=== PATIENT | female | born 1995 | race Caucasian/White ===

== ENCOUNTER 2019-06-06 19:50 | Inpatient (IN) | payer BC ==
[~2019-06-06] VITALS: Ht 165.1 cm; Wt 87.7 kg
--- NOTE | 2019-06-06 19:50 | NUR ---
LOU DENSON presented to unit via AMBULATION from HOME, accompanied by SO , FOR INDUCTION. LOU DENSON weighed, gowned, voided, and to bed. EFHM and TOCO applied, VS taken. LOU DENSON oriented to bed controls, call light, TV, heat, and A/C controls.
[2019-06-06 20:00] VITALS: BP 143/87
[2019-06-06] MEDS ORDERED: D5 LR IV SOLUTION 1,000 ML IV ONE (20:02)
[2019-06-06] MEDS: D5 LR IV SOLUTION 1,000 ML IV SCH (20:20)
[2019-06-06 21:00] VITALS: BP 128/78
[2019-06-06] MEDS ORDERED: PREN-53 PO (21:40)
[2019-06-06] MEDS ORDERED: MINERAL OIL CONCENTRATE 99.9% 15 ML UDC TOP PRN (22:00)
[2019-06-06 22:14] LABS: BASOPHILS % (AUTO) 0 % (0-10); EOSINOPHILS # (AUTO) 0.1 10^3/uL (0.0-0.3); EOSINOPHILS % (AUTO) 1 % (0-10); HEMATOCRIT 34 % (35-52); HEMOGLOBIN 11.4 G/DL (11.5-16.0); LYMPHOCYTES # (AUTO) 1.9 X 10^3 (1.0-4.0); LYMPHOCYTES % (AUTO) 17 % (12-44); MEAN CORPUSCULAR HEMOGLOBIN 31 PG (25-34); MEAN CORPUSCULAR HGB CONC 34 G/DL (32-36); MEAN CORPUSCULAR VOLUME 92 FL (80-99); MONOCYTES # (AUTO) 0.8 X 10^3 (0.0-1.0); MONOCYTES % (AUTO) 7 % (0-12); NEUTROPHILS % (AUTO) 74 % (42-75); PLATELET COUNT 198 10^3/uL (130-400); RED CELL DISTRIBUTION WIDTH 12.7 % (10.0-14.5); WHITE BLOOD COUNT 10.9 10^3/uL (4.3-11.0)
[2019-06-06 23:20] VITALS: BP 130/77
[2019-06-07] VITALS (58 sets, daily range): BP systolic 110–147; BP diastolic 60–93
[2019-06-07] MEDS ORDERED: OXYTOCIN/NORMAL SALINE 500 ML IV SCH ×2 (03:00→11:21)
[2019-06-07] MEDS ORDERED: SUFENTA 0.6MCG/ML BUPIVA 0.125 100 ML ONE (03:38)
[2019-06-07] MEDS: D5 LR IV SOLUTION 1,000 ML IV SCH (04:06)
[2019-06-07] MEDS ORDERED: fentaNYL INJECTION 100 MCG/2 ML AMP ONE (05:53)
--- NOTE | 2019-06-07 05:56 | NUR ---
Esha Petit CRNA here for epidural placement. Procedure explained, consent reviewed and signed by anesthesia. Questions answered to patient's satisfaction. Time out taken to verify correct patient/procedure. Patient up to side of bed, assisted into sitting position. Betadine prep done x3 and sterile drape applied. Local done, see anesthesia record. Test dose given, see anesthesia record for drug and dosage. Epidural catheter secured in place. Epidural placement complete. Assisted back into bed, monitors adjusted. Epidural dosed, see anesthesia record. Epidural of Sufenta/Bupvicaine @ 12cc/hr stated per pump. Patient tolerated procedure well.
[2019-06-07] MEDS ORDERED: BUPIVACAINE 0.25% 30 ML (SENSORCAINE) VIAL ONE (06:20)
[2019-06-07] MEDS ORDERED: LACTATED RINGERS 1,000 ML IV ONE ×2 (06:25)
[2019-06-07] MEDS ORDERED: ONDANSETRON 4 MG/2 ML (SDV) Z0FRAN IV PRN (06:30)
[2019-06-07] MEDS ORDERED: EPIDURAL (SUFENTA 0.6MCG/ML BUPIVA 0.125%) 100 ML BAG EPI PRN (06:30)
[2019-06-07] MEDS ORDERED: NALOXONE 0.4 MG/ML 1 ML (NARCAN) VIAL IV PRN (06:30)
--- NOTE | 2019-06-07 08:45 | History & Physical-OB ---
OB - Chief Complaint & HPI Date/Time Date of Admission: Date of Admission: Jun 06, 2019 at 19:50 Date seen by a Provider: Jun 07, 2019 Time Seen by a Provider: 08:10 Chief Complaint/History OB-Reason for Admission/Chief: Induction of Labor Hx : 1 Hx Para: 0 Expected Date of Delivery: Jun 04, 2019 Gestational Age in Weeks: 40 Gestational Age in Days: 2 Admission Nurse Assessment Rev: Yes Allergies and Home Medications Allergies Coded Allergies: No Known Drug Allergies (Unverified , 06/06/19) Home Medications [id number]/Iron Fumarate/FA/Dss 1 Each Tablet, 1 EACH PO DAILY, (Reported) Patient Home Medication List Home Medication List Reviewed: Yes OB - History Hx of Present Ultrasounds: Normal mid trimester US Obstetrical Complications: None Medical Complications: None Information Induced Hypertension: No Maternal Gestational Diabetes: No Hemorrhage: No Obstetrical History Hx : 1 Hx Para: 0 Hx # Term Pregnancies: 0 Hx # Pregnancies: 0 Number of Living Children: 0 Hx Termination: No Hx Total # of Abortions (Spona: 0 Hx Multiple Gestation: No Hx Ectopic : No Hx Stillbirth: No Hx Complication: No Hx Induced Hypertens: No Hx Maternal Gestational Diabet: No Hx Hemorrhage: No Patient Past Medical History Noncontributory Social History/Family History Alcohol Use: Denies Use Recreational Drug Use: No OB - Admission Exam Physical Exam Vitals: Vital Signs 06/07/19 06/07/19 07:30 08:05 Temp 98.2 Pulse 55 Resp 18 B/P (MAP) 131/78 (95) O2 Delivery Room Air HEENT: NCAT Heart: Rhythm Normal Lungs: Clear Abdomen: Gravid Extremities: Normal Reflexes: Normal Cervical Dilatation: 5cm Effacement: 50% Station: -3 Membranes: Intact Heart Rate: 130's Accelerations: Accelerations Present Decelerations: No Decelerations Short Term Variability: Present Nursing Home Variability: Average (6-25) Contractions on Admission: < 5 Minutes Apart Intensity: Moderate Spring Scoring Tool (Modified) Dilation (cm): >5cm (3) Effacement (%): 51-79% (2) Descent/Station: -3 (0) Cervix Consistency: Soft (2) Subtract 1 point for: Nulliparity (-1) Labs Laboratory Tests Test 06/06/19 21:50 Range/Units White Blood Count 10.9 4.3-11.0 10^3/uL Red Blood Count 3.69 L 4.35-5.85 10^6/uL Hemoglobin 11.4 L 11.5-16.0 G/DL Hematocrit 34 L 35-52 % Mean Corpuscular Volume 92 80-99 FL Mean Corpuscular Hemoglobin 31 25-34 PG Mean Corpuscular Hemoglobin Concent 34 32-36 G/DL Red Cell Distribution Width 12.7 10.0-14.5 % Platelet Count 198 130-400 10^3/uL Mean Platelet Volume 12.0 H 7.4-10.4 FL Neutrophils (%) (Auto) 74 42-75 % Lymphocytes (%) (Auto) 17 12-44 % Monocytes (%) (Auto) 7 0-12 % Eosinophils (%) (Auto) 1 0-10 % Basophils (%) (Auto) 0 0-10 % Neutrophils # (Auto) 8.0 H 1.8-7.8 X 10^3 Lymphocytes # (Auto) 1.9 1.0-4.0 X 10^3 Monocytes # (Auto) 0.8 0.0-1.0 X 10^3 Eosinophils # (Auto) 0.1 0.0-0.3 10^3/uL Basophils # (Auto) 0.0 0.0-0.1 10^3/uL OB - Assessment/Plan/Diagnosis Assessment Assessment: induction of labor Admission Dx Intrauterine at 40 2/7 weeks Admission Status: Inpatient Order (span 2 midnights) Reason for Inpatient Admission: Intrauterine at 40 2/7 Plan Plan: Induction Induction Method: per Pitocin Protocol LUISANA SMALL DO Jun 07, 2019 08:44
[2019-06-07] MEDS ORDERED: LIDOCAINE 1% INJ 20 ML 20 ML VIAL ONE (09:55)
--- NOTE | 2019-06-07 11:21 | OB Labor & Delivery Record ---
Vag Delivery Note Vag Delivery Note Date of Delivery: 06/07/19 Preoperative Diagnosis: Roxana Duarte is a (24 /Para 1 / 0,Gestational Age (wks)40 Postoperative Diagnosis: Same Surgeon: LUISANA SMALL Canceling Machine Operator: [None] Anesthesia: [Epidural] Delivery Type: [Normal Spontaneous Vaginal Delivery] Findings: [] Viable [Female] infant, apgars [], weight [7 pounds, 4 ounces] Lacerations:Midline Episiotomy with standard repair Intact placenta with 3 vessel cord. No nuchal cord, body cord or shoulder dystocia Cytotec 800 mcg placed for hemorrhage prophylaxis Estimated Blood Loss: [300] ml Complications: None Condition: Stable Description of Procedure: The patient is a 24 year old female who presented [for Pitocin Induction of Labor]. She was admitted and informed consent was obtained. She progressed to complete dilatation and began to push. She was then set up for delivery. The infant's head was delivered atraumatically in the [ROP] position. The shoulders and remainder of the 's body were then delivered without difficulty. Upon delivery, the head was held below the level of the perineum and the mouth and nares were bulb suctioned. The cord was doubly clamped and cut and the infant was handed off to the pediatric staff. An intact placenta with 3-vessel cord delivered via Yun and there was found to be minimal bleeding.~ Vigorous fundal massage was performed and the fundus was found to be firm. IV oxytocin was given. Examination of the vagina and perineum revealed only the midline episiotomy which was repaired in the usual fashion with 2-0 and 3-0 vicryl suture. Following the repair, sponge, instrument and needle counts were correct. Mom and baby were both in stable condition in the labor suite. Vitals - Labs Vital Signs - I&O Vital Signs Date Time Temp Pulse Resp B/P (MAP) Pulse Ox O2 Delivery O2 Flow Rate FiO2 06/07/19 08:05 55 18 131/78 (95) Room Air 06/07/19 07:45 63 18 115/70 (85) Room Air 06/07/19 07:30 98.2 54 18 132/76 (94) Room Air 06/07/19 07:25 68 18 129/68 (88) Room Air 06/07/19 07:20 53 18 131/79 (96) Room Air 06/07/19 07:15 52 18 128/69 (88) Room Air 06/07/19 07:10 56 18 121/79 (93) Room Air 06/07/19 07:05 58 18 127/77 (94) Room Air 06/07/19 07:00 54 18 129/75 (93) Room Air 06/07/19 06:50 52 18 130/73 (92) Room Air 06/07/19 06:46 51 18 132/75 (94) Room Air 06/07/19 06:43 73 18 125/81 (96) Room Air 06/07/19 06:40 57 18 129/76 (93) Room Air 06/07/19 06:37 58 18 125/80 (95) Room Air 06/07/19 06:34 53 18 126/75 (92) Room Air 06/07/19 06:31 58 18 123/75 (91) Room Air 06/07/19 06:28 77 18 131/82 (98) Room Air 06/07/19 06:25 75 18 123/78 (93) Room Air 06/07/19 06:20 97.9 60 18 132/72 (92) Room Air 06/07/19 06:15 56 18 117/65 (82) Room Air 06/07/19 06:10 93 18 120/74 (89) Room Air 06/07/19 06:05 63 18 145/78 (100) Room Air 06/07/19 06:00 77 18 130/80 (97) Room Air 06/07/19 05:44 53 18 136/67 (90) Room Air 06/07/19 05:30 71 18 126/88 (101) Room Air 06/07/19 05:15 67 18 137/75 (95) Room Air 06/07/19 04:55 49 18 127/74 (91) Room Air 06/07/19 04:45 51 18 127/78 (94) Room Air 06/07/19 04:30 82 18 122/72 (89) Room Air 06/07/19 04:15 48 18 147/74 (98) Room Air 06/07/19 04:00 55 18 142/77 (98) Room Air 06/07/19 03:45 53 18 127/87 (100) Room Air 06/07/19 03:30 52 18 124/77 (93) Room Air 06/07/19 03:15 98.0 54 18 129/85 (100) Room Air 06/06/19 23:20 97.7 75 18 130/77 (94) Room Air 06/06/19 21:00 77 18 128/78 (95) Room Air 06/06/19 20:00 98.2 75 18 143/87 (105) Room Air l I & O 06/07/19 07:00 Intake Total 600 ml Balance 600 ml Labs Laboratory Tests 06/06/19 21:50: White Blood Count 10.9, Red Blood Count 3.69L, Hemoglobin 11.4L, Hematocrit 34L, Mean Corpuscular Volume 92, Mean Corpuscular Hemoglobin 31, Mean Corpuscular He moglobin Concent 34, Red Cell Distribution Width 12.7, Platelet Count 198, Mean Platelet Volume 12.0H, Neutrophils (%) (Auto) 74, Lymphocytes (%) (Auto) 17, Monocytes (%) (Auto) 7, Eosinophils (%) (Auto) 1, Basophils (%) (Auto) 0, Neutrophils # (Auto) 8.0H, Lymphocytes # (Auto) 1.9, Monocytes # (Auto) 0.8, Eosinophils # (Auto) 0.1, Basophils # (Auto) 0.0 LUISANA SMALL DO Jun 07, 2019 11:21
[2019-06-07] MEDS ORDERED: TETANUS,DIPTH,PERTUSS P/F (BOOSTRIX) 0.5 ML VIAL IM ONE (11:30)
[2019-06-07] MEDS ORDERED: DIBUCAINE (NUPERCAINAL) 1% OINT 30 GM TOP PRN (11:30)
[2019-06-07] MEDS ORDERED: MEASLES,MUMPS,RUBELLA 1 EA INJ SQ ONE (11:30)
[2019-06-07] MEDS ORDERED: WITCH HAZEL(TUCKS) 40 EA JAR TOP PRN (11:30)
[2019-06-07] MEDS ORDERED: BENZOCAINE/MENTHOL (DERMOPLAST) 56 ML CAN TP PRN (11:30)
[2019-06-07] MEDS ORDERED: CATHETER FLUSH 10 ML SYR IV SCH (14:00)
[2019-06-07] MEDS: IBUPROFEN 800 MG (MOTRIN) TAB PO SCH (14:22)
[2019-06-07] MEDS: ACETAMINOPHEN 500 MG TAB (TYLENOL) PO SCH ×2 (15:32→20:43)
--- NOTE | 2019-06-07 16:30 | NUR ---
FFU, light rubra lochia noted, no clots expressed. Pt assisted to sitting position and then standing position at side of bed. Pt reports L leg still numb, pt assisted to wheelchair. Pt taken to bathroom. +void. Pericare demonstrated. Tucks and dermoplast provided. Fresh vpad and underwear applied. Pt assisted back to wheelchair. Pt wheeled to room 312 accompanied by RN, Student Nurse, S.O., and family member with all personal belongings. Pt assisted to bed. Pt and family oriented to room and call light. packet explained. Encouraged pt to call when ready for ambulation again, as leg was still numb. Pt preparing to breastfeed at this time. NO needs or concerns voiced at this time
[2019-06-07] MEDS: DOCUSATE SODIUM 100 MG (COLACE) CAP PO SCH (20:42)
[2019-06-08 00:22] VITALS: BP 139/79
[2019-06-08] MEDS: IBUPROFEN 800 MG (MOTRIN) TAB PO SCH ×2 (00:22→08:59)
[2019-06-08] MEDS: ACETAMINOPHEN 500 MG TAB (TYLENOL) PO SCH ×3 (02:50→14:38)
[2019-06-08 04:55] VITALS: BP 125/74
[2019-06-08] MEDS ORDERED: PRENATAL VITAMIN 1 EA TAB PO SCH (07:00)
[2019-06-08 07:46] LABS: BASOPHILS % (AUTO) 0 % (0-10); EOSINOPHILS # (AUTO) 0.1 10^3/uL (0.0-0.3); EOSINOPHILS % (AUTO) 1 % (0-10); HEMATOCRIT 29 % (35-52); HEMOGLOBIN 9.5 G/DL (11.5-16.0); LYMPHOCYTES # (AUTO) 2.2 X 10^3 (1.0-4.0); LYMPHOCYTES % (AUTO) 20 % (12-44); MEAN CORPUSCULAR HEMOGLOBIN 31 PG (25-34); MEAN CORPUSCULAR HGB CONC 33 G/DL (32-36); MEAN CORPUSCULAR VOLUME 94 FL (80-99); MEAN PLATELET VOLUME 12.2 FL (7.4-10.4); MONOCYTES # (AUTO) 0.7 X 10^3 (0.0-1.0); MONOCYTES % (AUTO) 6 % (0-12); NEUTROPHILS # (AUTO) 8.3 X 10^3 (1.8-7.8); NEUTROPHILS % (AUTO) 73 % (42-75); PLATELET COUNT 201 10^3/uL (130-400); RED CELL DISTRIBUTION WIDTH 12.8 % (10.0-14.5); WHITE BLOOD COUNT 11.3 10^3/uL (4.3-11.0)
--- NOTE | 2019-06-08 07:50 | NUR ---
Dr Lyons to see pt. New orders received.
--- NOTE | 2019-06-08 08:08 | Discharge Summary ---
Diagnosis/Chief Complaint Date of Admission Jun 06, 2019 at 19:50 Date of Discharge June 08, 2019 Discharge Date: Jun 08, 2019 Discharge Time: 13:00 Admission Diagnosis Admission Diagnosis Intrauterine at 40 2/7 weeks Discharge Diagnosis Intrauterine at 40 2/7 weeks--delivered Reason Hospital Visit Pitocin Induction of Labor Discharge Summary Hospital Course Hospital Course Ms. Duarte was admitted for Pitocin Induction of Labor. She received an Epidural for antepartum pain management. I artificially rupture her membranes. She progressed to complete, then delivered a healthy viable female infant without complications. The remainder of her hospitalization was unremarkable. Her vital signs remained stable throughout her hospitalization. She will be discharged to home with instructions, prescriptions, and a follow up appointment. Labs Laboratory Tests 06/06/19 21:50: Red Blood Count 3.69L, Hemoglobin 11.4L, Hematocrit 34L, Mean Platelet Volume 12.0H, Neutrophils # (Auto) 8.0H 06/08/19 07:05: Red Blood Count 3.03L, Hemoglobin 9.5L, Hematocrit 29L, Mean Platelet Volume 12.2H, Neutrophils # (Auto) 8.3H, White Blood Count 11.3H Procedures None. Discharge Physical Examination Allergies: Coded Allergies: No Known Drug Allergies (Unverified , 06/06/19) Vitals & I&Os Vital Signs Date Time Temp Pulse Resp B/P (MAP) Pulse Ox O2 Delivery O2 Flow Rate FiO2 06/08/19 04:55 97.7 81 18 125/74 (91) 98 Room Air General Appearance: Alert, Oriented X3, Cooperative HEENT: Atraumatic Respiratory: Clear to Auscultation Cardiovascular: Regular Rate, No Murmurs Abdominal: Normal Bowel Sounds, Soft, No Tenderness Extremities: No Clubbing, No Cyanosis Skin: No Rashes Neuro: Normal Gait, Normal Speech Psych/Mental Status: Mental Status NL Discharge Home Medications Reviewed and agree with Discharge Medication list on patient's Discharge Instruction sheet Instructions to Patient/Family Please see electronic discharge instructions given to patient. Clinical Quality Measures DVT/VTE Risk/Contraindication: Risk Factor Score Per Nursin RFS Level Per Nursing on Admit: 1=Low/No VTE PPX LUISANA SMALL DO Jun 08, 2019 08:08
[2019-06-08] MEDS ORDERED: DOCU100C37 PO (08:10)
[2019-06-08] MEDS ORDERED: ACET-77 PO (08:10)
[2019-06-08] MEDS ORDERED: OXC5T PO (08:10)
[2019-06-08] MEDS ORDERED: IBUP-1780 PO (08:10)
[2019-06-08] MEDS: DOCUSATE SODIUM 100 MG (COLACE) CAP PO SCH (09:00)
[2019-06-08 09:10] VITALS: BP 124/76
[2019-06-08] MEDS ORDERED: TETANUS,DIPTH,PERTUSS P/F (BOOSTRIX) 0.5 ML VIAL IM ONE ×2 (12:27→12:51)
[2019-06-08 12:32] VITALS: BP 116/63
--- NOTE | 2019-06-08 14:00 | NUR ---
Discharge instructions explained, signed and copy to patient. pt verbalized understanding of instructions and denied questions. prescriptions given.
--- NOTE | 2019-06-08 14:33 | Anesthesia-Regional Post-Op ---
Regional Patient Condition Mental Status: Alert, Oriented x3 Circulation: Same as Pre-Op Headache: Absent Sensation: Full Recovery Motor Block: Absent Post Op Complications Complications None Follow Up Care/Instructions Patient Instructions None needed. Anesthesia/Patient Condition Patient is doing well, no complaints, stable vital signs, no apparent adverse anesthesia problems. CARROLL QUISPE DO Jun 08, 2019 14:33
--- NOTE | 2019-06-08 16:30 | NUR ---
Discharged to home. Ambulates self downstairs accompanied by staff member. To private vehicle with belongings in hand.
== END 2019-06-08 16:30 | disposition home or self-care (01) | DRG 807 ==
LOC: LDRP 19:50
PROVIDERS: ADMIT Obstetrics & Gynecology; ATTEND Obstetrics & Gynecology
PROC: 3E033VJ Introduction of Other Hormone into Peripheral Vein, Percutaneous Approach (ICD-10-PCS; 2019-06-06)
PROC: 10E0XZZ Delivery of Products of Conception, External Approach (ICD-10-PCS; principal; 2019-06-07)
PROC: 0W8NXZZ Division of Female Perineum, External Approach (ICD-10-PCS; 2019-06-07)
DX: O80 Encounter for full-term uncomplicated delivery (principal); Z3A.40 40 weeks gestation of pregnancy; Z37.0 Single live birth; Z23 Encounter for immunization
CPT/HCPCS: 36415; 85025; 86850; 86900; 86901; 90715

== ENCOUNTER → 2021-09-10 | Outpatient (CLI) | payer BC ==
[~2021-09-10] MED LIST: ACET-78 PO; DOCU100C37 PO; IBUP-1780 PO; OXC5T PO; PREN-53 PO
[2021-09-10 13:40] LABS: POTASSIUM 3.7 MMOL/L (3.6-5.0)
[2021-09-10 13:41] LABS: ALBUMIN 4.3 GM/DL (3.2-4.5); BILIRUBIN,TOTAL 0.4 MG/DL (0.1-1.0); CALCIUM 9.1 MG/DL (8.5-10.1); CREATININE SERUM 0.78 MG/DL (0.60-1.30); TOTAL PROTEIN 7.9 GM/DL (6.4-8.2)
[2021-09-10 13:42] LABS: HEMATOCRIT 42 % (35-52); HEMOGLOBIN 13.8 g/dL (11.5-16.0); LYMPHOCYTES % (AUTO) 30 % (12-44); MEAN CORPUSCULAR HEMOGLOBIN 29 pg (25-34); MEAN CORPUSCULAR HGB CONC 33 g/dL (32-36); MEAN CORPUSCULAR VOLUME 88 fL (80-99); MEAN PLATELET VOLUME 10.1 fL (9.0-12.2); NEUTROPHILS % (AUTO) 60 % (42-75); PLATELET COUNT 375 10^3/uL (130-400); WHITE BLOOD COUNT 6.2 10^3/uL (4.3-11.0)
[2021-09-10 13:43] LABS: BASOPHILS % (AUTO) 0 % (0-10); EOSINOPHILS # (AUTO) 0.1 10^3/uL (0.0-0.3); EOSINOPHILS % (AUTO) 2 % (0-10); LYMPHOCYTES # (AUTO) 1.9 X 10^3 (1.0-4.0); MONOCYTES # (AUTO) 0.5 X 10^3 (0.0-1.0); MONOCYTES % (AUTO) 7 % (0-12); NEUTROPHILS # (AUTO) 3.7 X 10^3 (1.8-7.8)
== END ==
LOC: LAB FS 12:30
PROVIDERS: ATTEND Registered Nurse Emergency
DX: R10.9 Unspecified abdominal pain (principal)
CPT/HCPCS: 36415; 80053; 83690; 85025

== ENCOUNTER → 2022-07-01 | Outpatient (CLI) | payer BC | LOC: LAB FS 12:09 | PROVIDERS: ATTEND Family Medicine | DX: N92.5 Other specified irregular menstruation (principal) | CPT/HCPCS: 36415; 84702 ==

== ENCOUNTER → 2022-07-26 | Outpatient (CLI) | payer BC ==
[2022-07-26 14:38] LABS: BASOPHILS % (AUTO) 0 % (0-10); EOSINOPHILS # (AUTO) 0.2 10^3/uL (0.0-0.3); EOSINOPHILS % (AUTO) 2 % (0-10); HEMATOCRIT 34 % (35-52); HEMOGLOBIN 11.4 g/dL (11.5-16.0); LYMPHOCYTES # (AUTO) 2.6 10^3/uL (1.0-4.0); LYMPHOCYTES % (AUTO) 25 % (12-44); MEAN CORPUSCULAR HEMOGLOBIN 29 pg (25-34); MEAN CORPUSCULAR HGB CONC 33 g/dL (32-36); MEAN CORPUSCULAR VOLUME 88 fL (80-99); MEAN PLATELET VOLUME 10.8 fL (9.0-12.2); MONOCYTES # (AUTO) 0.6 10^3/uL (0.0-1.0); MONOCYTES % (AUTO) 6 % (0-12); NEUTROPHILS # (AUTO) 6.9 10^3/uL (1.8-7.8); NEUTROPHILS % (AUTO) 67 % (42-75); PLATELET COUNT 307 10^3/uL (130-400); WHITE BLOOD COUNT 10.4 10^3/uL (4.3-11.0)
== END ==
LOC: LAB FS 14:09
PROVIDERS: ATTEND Family Medicine
DX: Z34.91 Encounter for supervision of normal pregnancy, unspecified, first trimester (principal); Z3A.08 8 weeks gestation of pregnancy
CPT/HCPCS: 36415; 80055; 87088; 87389

== ENCOUNTER 2023-03-03 05:12 | Inpatient (IN) | payer BC ==
[2023-03-03] VITALS (22 sets, daily range): BP systolic 107–141; BP diastolic 59–89
[~2023-03-03] VITALS: Ht 165.1 cm; Wt 92.1 kg
[2023-03-03] MEDS ORDERED: AMPICILLIN FOR IV USE 2,000 MG in NS (IVPB) 50 ML IV SCH (05:21)
[2023-03-03] MEDS ORDERED: MINERAL OIL 30 ML UDC TOP PRN (05:30)
[2023-03-03] MEDS ORDERED: D5 LR IV SOLUTION 1,000 ML IV SCH (05:30)
[2023-03-03] MEDS ORDERED: D5 LR IV SOLUTION 1,000 ML IV ONE (05:38)
[2023-03-03] MEDS ORDERED: WATER (STERILE) FOR INJECTION 20 ML ONE (05:38)
[2023-03-03] MEDS ORDERED: AMPICILLIN 2,000 MG/14.8 ML (IV USE) ONE (05:38)
[2023-03-03 05:43] LABS: BASOPHILS % (AUTO) 0 % (0-10); EOSINOPHILS # (AUTO) 0.1 10^3/uL (0.0-0.3); EOSINOPHILS % (AUTO) 1 % (0-10); HEMATOCRIT 33 % (35-52); LYMPHOCYTES # (AUTO) 1.8 10^3/uL (1.0-4.0); LYMPHOCYTES % (AUTO) 26 % (12-44); MEAN CORPUSCULAR HEMOGLOBIN 29 pg (25-34); MEAN CORPUSCULAR HGB CONC 33 g/dL (32-36); MEAN CORPUSCULAR VOLUME 88 fL (80-99); MEAN PLATELET VOLUME 11.1 fL (9.0-12.2); MONOCYTES # (AUTO) 0.6 10^3/uL (0.0-1.0); MONOCYTES % (AUTO) 8 % (0-12); NEUTROPHILS # (AUTO) 4.5 10^3/uL (1.8-7.8); NEUTROPHILS % (AUTO) 65 % (42-75); PLATELET COUNT 260 10^3/uL (130-400)
[2023-03-03 05:44] LABS: BILIRUBIN,URINE NEGATIVE (NEGATIVE); CLARITY,URINE CLEAR; COLOR,URINE YELLOW; GLUCOSE, URINE (UA) NEGATIVE (NEGATIVE); KETONES,URINE 1+ (NEGATIVE); LEUKOCYTE ESTERASE ,URINE NEGATIVE (NEGATIVE); NITRITE,URINE NEGATIVE (NEGATIVE); PH,URINE 5.5 (5-9); PROTEIN,URINE 1+ (NEGATIVE)
[2023-03-03] MEDS ORDERED: CATHETER FLUSH 10 ML SYR IV SCH ×2 (06:00→14:00)
[2023-03-03 06:08] LABS: BACTERIA,URINE MODERATE /HPF; SQUAMOUS EPITHELIAL CELL,UR RARE /HPF; WBC,URINE RARE /HPF
--- NOTE | 2023-03-03 08:40 | History & Physical-OB ---
OB - Chief Complaint & HPI Date/Time Date of Admission: Date of Admission: Mar 03, 2023 at 05:12 Date seen by a Provider: Mar 03, 2023 Time Seen by a Provider: 08:40 Chief Complaint/History OB-Reason for Admission/Chief: Induction of Labor Hx : 2 Hx Para: 1 Expected Date of Delivery: Mar 03, 2023 Gestational Age in Weeks: 40 Gestational Age in Days: 0 History of Labs B neg, Ab neg, Rub Imm, HIV/RPR/HepB/C NR Normal 1 hr GTT GBS Positive Allergies and Home Medications Allergies Coded Allergies: No Known Drug Allergies (Unverified , 06/06/19) Patient Home Medication List Home Medication List Reviewed: Yes [id number]/Iron Fumarate/FA/Dss ( 19 Tablet) 1 Each Tablet, 1 EACH PO DAILY, (Reported) Entered as Reported by: CARI COSTA on 06/06/192139 Last Action: Reviewed Discontinued Medications Acetaminophen (Acetaminophen) 500 Mg Tablet, 1,000 MG PO Q6HR Discontinued Reason: No Longer Taking Prescribed by: LUISANA SMALL on 06/08/19809 Last Action: Discontinued Docusate Sodium (Docusate Sodium) 100 Mg Capsule, 100 MG PO BID Discontinued Reason: No Longer Taking Prescribed by: LUISANA SMALL on 06/08/19809 Last Action: Discontinued Ibuprofen (Ibuprofen) 800 Mg Tablet, 800 MG PO Q8HR Discontinued Reason: No Longer Taking Prescribed by: LUISANA PINOS on 06/08/19809 Last Action: Discontinued Oxycodone Hcl (Oxycodone IR) 5 Mg Tab, 5 MG PO Q6H PRN for PAIN-SEVERE Discontinued Reason: No Longer Taking Prescribed by: LUISANA SMALL on 06/08/19809 Last Action: Discontinued OB - History Hx of Present Care: Yes Ultrasounds: Normal mid trimester US Obstetrical Complications: None (transition from Dr Alas at 30 weeks) Medical Complications: None Information Induced Hypertension: No Maternal Gestational Diabetes: No Hemorrhage: No Obstetrical History Hx : 2 Hx Para: 1 Hx # Term Pregnancies: 1 Number of Living Children: 1 Hx Termination: No Hx Multiple Gestation: No Hx Stillbirth: No Hx Complication: No Hx Induced Hypertens: No Hx Maternal Gestational Diabet: No Patient Past Medical History Noncontributory Social History/Family History Alcohol Use: Denies Use Recreational Drug Use: No Smoking Cessation: Never smoker 2nd Hand Smoke Exposure: No Immunizations Tetanus Booster (TDap): Less than 5yrs Rubella: immune RPR/VDRL: Negative GBS Status: Positive HBsAG: Negative OB - Admission Exam Physical Exam Vitals: Vital Signs HEENT: NCAT Heart: Rhythm Normal Lungs: Clear Abdomen: Gravid Extremities: Normal Cervical Dilatation: 4cm Effacement: 75% Station: -1 Membranes: Intact Heart Rate: 140's Accelerations: Accelerations Present Decelerations: No Decelerations Short Term Variability: Present [facility] Variability: Average (6-25) Contractions on Admission: < 5 Minutes Apart Labs Laboratory Tests Test 03/03/23 05:20 03/03/23 05:30 Range/Units Urine Color YELLOW Urine Clarity CLEAR Urine pH 5.5 5-9 Urine Specific [place] >=1.030 1.016-1.022 Urine Protein 1+ H NEGATIVE Urine Glucose (UA) NEGATIVE NEGATIVE Urine Ketones 1+ H NEGATIVE Urine Nitrite NEGATIVE NEGATIVE Urine Bilirubin NEGATIVE NEGATIVE Urine Urobilinogen 1.0 < = 1.0 MG/DL Urine Leukocyte Esterase NEGATIVE NEGATIVE Urine RBC (Auto) 3+ H NEGATIVE Urine RBC 10-25 H /HPF Urine WBC RARE /HPF Urine Squamous Epithelial Cells RARE /HPF Urine Crystals NONE /LPF Urine Bacteria MODERATE H /HPF Urine Casts NONE /LPF Urine Mucus SMALL H /LPF Urine Culture Indicated YES White Blood Count 7.0 4.3-11.0 10^3/uL Red Blood Count 3.79 L 3.80-5.11 10^6/uL Hemoglobin 11.0 L 11.5-16.0 g/dL Hematocrit 33 L 35-52 % Mean Corpuscular Volume 88 80-99 fL Mean Corpuscular Hemoglobin 29 25-34 pg Mean Corpuscular Hemoglobin Concent 33 32-36 g/dL Red Cell Distribution Width 13.6 10.0-14.5 % Platelet Count 260 130-400 10^3/uL Mean Platelet Volume 11.1 9.0-12.2 fL Immature Granulocyte % (Auto) 0 % Neutrophils (%) (Auto) 65 42-75 % Lymphocytes (%) (Auto) 26 12-44 % Monocytes (%) (Auto) 8 0-12 % Eosinophils (%) (Auto) 1 0-10 % Basophils (%) (Auto) 0 0-10 % Neutrophils # (Auto) 4.5 1.8-7.8 10^3/uL Lymphocytes # (Auto) 1.8 1.0-4.0 10^3/uL Monocytes # (Auto) 0.6 0.0-1.0 10^3/uL Eosinophils # (Auto) 0.1 0.0-0.3 10^3/uL Basophils # (Auto) 0.0 0.0-0.1 10^3/uL Immature Granulocyte # (Auto) 0.0 0.0-0.1 10^3/uL Syphilis Total Antibody Negative Negative OB - Assessment/Plan/Diagnosis Assessment Assessment: induction of labor Admission Dx Third Trimester 40 week gestation GBS Positive in Admission Status: Inpatient Order (span 2 midnights) Reason for Inpatient Admission: Labor and post care Plan Other Plan 28 yo @ 40.0 wga here for elective IOL Plan GBS Pos: Started on ampicillin, Will plan on AROM at the 2nd dose of AB Expectant management OK with epidural when patient desires JAIME CAMARENA MD Mar 03, 2023 08:40
[2023-03-03] MEDS ORDERED: AMPICILLIN FOR IV USE 1,000 MG in NS (IVPB) 50 ML IV SCH (09:30)
[2023-03-03] MEDS ORDERED: OXYTOCIN PRE-MIX DRIP 500 ML IV SCH ×2 (09:45→13:00)
[2023-03-03] MEDS ORDERED: fentaNYL 2 mcg/ml BUPIVA 0.125 0 ML ONE (11:41)
--- NOTE | 2023-03-03 12:17 | Labor Progress Note ---
Labor Progress Note Labor Progress Note Date Seen by Provider: Mar 03, 2023 Time Seen by Provider: 12:14 Subjective: Pt having more pain and pressure. Objective: Assessment/Plan: Roxana Duarte is a (28 /Para / ,Gestational Age (wks)40.0 here for elective IOL CEFM/TOCO Continue pitocin augmentation Anesthesia: Desires epidural GBS positive, continue ampicillin Anticipate vaginal delivery. Vitals - Labs Vital Signs - I&O Vital Signs Date Time Temp Pulse Resp B/P (MAP) Pulse Ox O2 Delivery O2 Flow Rate FiO2 03/03/23 10:42 80 18 124/89 (101) Room Air 03/03/23 10:28 73 18 118/69 (85) Room Air 03/03/23 10:12 81 18 118/69 (85) Room Air 03/03/23 09:55 76 18 109/62 (78) Room Air 03/03/23 08:37 36.6 72 18 109/59 (76) Room Air 03/03/23 05:52 36.4 85 18 107/62 (77) 97 Room Air 03/03/23 05:52 36.4 85 18 97 Room Air I & O 03/03/23 07:00 Intake Total 14.8 ml Balance 14.8 ml Labs Laboratory Tests 03/03/23 05:20: Urine Color YELLOW, Urine Clarity CLEAR, Urine pH 5.5, Urine Specific [place] >=1.030, Urine Protein 1+H, Urine Glucose (UA) NEGATIVE, Urine Ketones 1+H, Urine Nitrite NEGATIVE, Urine Bilirubin NEGATIVE, Urine Urobilinogen 1.0, Urine Leukocyte Esterase NEGATIVE, Urine RBC (Auto) 3+H, Urine RBC 10-25H, Urine WBC RARE, Urine Squamous Epithelial Cells RARE, Urine Crystals NONE, Urine Bacteria MODERATEH, Urine Casts NONE, Urine Mucus SMALLH, Urine Culture Indicated YES 03/03/23 05:30: White Blood Count 7.0, Red Blood Count 3.79L, Hemoglobin 11.0L, Hematocrit 33L, Mean Corpuscular Volume 88, Mean Corpuscular Hemoglobin 29, Mean Corpuscular Hemoglobin Concent 33, Red Cell Distribution Width 13.6, Platelet Count 260, Mean Platelet Volume 11.1, Immature Granulocyte % (Auto) 0, Neutrophils (%) (Auto) 65, Lymphocytes (%) (Auto) 26, Monocytes (%) (Auto) 8, Eosinophils (%) (Auto) 1, Basophils (%) (Auto) 0, Neutrophils # (Auto) 4.5, Lymphocytes # (Auto) 1.8, Monocytes # (Auto) 0.6, Eosinophils # (Auto) 0.1, Basophils # (Auto) 0.0, Immature Granulocyte # (Auto) 0.0, Syphilis Total Antibody Negative JAIME CAMARENA MD Mar 03, 2023 12:17
[2023-03-03] MEDS ORDERED: LIDOCAINE 1% INJ 10 ML VIAL ONE (12:26)
--- NOTE | 2023-03-03 12:58 | OB Labor & Delivery Record ---
Vag Delivery Note Vag Delivery Note Date of Delivery: 03/03/23 Preoperative Diagnosis: Roxana Duarte is a (28 /Para 2 / 1,Gestational Age (wks)40.0 here for elective IOL Postoperative Diagnosis: Same Surgeon: JAIME CAMARENA MD Craft Recruiter: None Anesthesia: Natural Delivery Type: @ 1238 Findings: Viable female , apgars 7/9, weight 7#3, 3270 Lacerations: None Intact placenta with 3 vessel cord. No nuchal cord, body cord or shoulder dystocia Estimated Blood Loss: 100 ml Complications: None Condition: Stable Description of Procedure: The patient is a 28 year old female who presented for IOL. She was admitted and informed consent was obtained. Her labor course was remarkable for pitocin augmentation. She progressed to complete dilatation and began to push. She was then set up for delivery. The infant's head was delivered atraumatically in the GAETANO position. The shoulders and remainder of the 's body were then delivered without difficulty. Upon delivery, the infant was vigorous and placed on maternal chest and the mouth and nares were bulb suctioned. After a 3 min delay cord was doubly clamped and cut by grandmother of and the remained on maternal chest. An intact placenta with 3-vessel cord delivered via Yun and there was found to be minimal bleeding.~ Vigorous fundal massage was performed and the fundus was found to be firm. IV oxytocin was given. Examination of the vagina and perineum revealed no lacerations that required repair. Following the repair, sponge, instrument and needle counts were correct. Mom and baby were both in stable condition in the labor suite. Vitals - Labs Vital Signs - I&O Vital Signs Date Time Temp Pulse Resp B/P (MAP) Pulse Ox O2 Delivery O2 Flow Rate FiO2 03/03/23 10:42 80 18 124/89 (101) Room Air 03/03/23 10:28 73 18 118/69 (85) Room Air 03/03/23 10:12 81 18 118/69 (85) Room Air 03/03/23 09:55 76 18 109/62 (78) Room Air 03/03/23 08:37 36.6 72 18 109/59 (76) Room Air 03/03/23 05:52 36.4 85 18 107/62 (77) 97 Room Air 03/03/23 05:52 36.4 85 18 97 Room Air I & O 03/03/23 07:00 Intake Total 14.8 ml Balance 14.8 ml Labs Laboratory Tests 03/03/23 05:20: Urine Color YELLOW, Urine Clarity CLEAR, Urine pH 5.5, Urine Specific [place] >=1.030, Urine Protein 1+H, Urine Glucose (UA) NEGATIVE, Urine Ketones 1+H, Urine Nitrite NEGATIVE, Urine Bilirubin NEGATIVE, Urine Urobilinogen 1.0, Urine Leukocyte Esterase NEGATIVE, Urine RBC (Auto) 3+H, Urine RBC 10-25H, Urine WBC RARE, Urine Squamous Epithelial Cells RARE, Urine Crystals NONE, Urine Bacteria MODERATEH, Urine Casts NONE, Urine Mucus SMALLH, Urine Culture Indicated YES 03/03/23 05:30: White Blood Count 7.0, Red Blood Count 3.79L, Hemoglobin 11.0L, Hematocrit 33L, Mean Corpuscular Volume 88, Mean Corpuscular Hemoglobin 29, Mean Corpuscular Hemoglobin Concent 33, Red Cell Distribution Width 13.6, Platelet Count 260, Mean Platelet Volume 11.1, Immature Granulocyte % (Auto) 0, Neutrophils (%) (Auto) 65, Lymphocytes (%) (Auto) 26, Monocytes (%) (Auto) 8, Eosinophils (%) (Auto) 1, Basophils (%) (Auto) 0, Neutrophils # (Auto) 4.5, Lymphocytes # (Auto) 1.8, Monocytes # (Auto) 0.6, Eosinophils # (Auto) 0.1, Basophils # (Auto) 0.0, Immature Granulocyte # (Auto) 0.0, Syphilis Total Antibody Negative JAIME CAMARENA MD Mar 03, 2023 12:58
[2023-03-03] MEDS ORDERED: TETANUS,DIPTH,PERTUSS P/F (BOOSTRIX) 0.5 ML VIAL IM ONE (13:00)
[2023-03-03] MEDS ORDERED: BENZOCAINE/MENTHOL (DERMOPLAST) 56 ML CAN TP PRN (13:00)
[2023-03-03] MEDS ORDERED: MEASLES,MUMPS,RUBELLA 1 EA INJ SQ ONE (13:00)
[2023-03-03] MEDS ORDERED: WITCH HAZEL(TUCKS) 40 EA JAR TOP PRN (13:00)
[2023-03-03] MEDS: IBUPROFEN 600 MG (MOTRIN) TAB PO SCH ×2 (13:50→19:49)
[2023-03-03] MEDS: ACETAMINOPHEN 500 MG TAB (TYLENOL) PO SCH ×2 (13:50→19:50)
[2023-03-03] MEDS: DOCUSATE SODIUM 100 MG (COLACE) CAP PO SCH (19:49)
[2023-03-04 01:23] VITALS: BP 134/60
[2023-03-04] MEDS: ACETAMINOPHEN 500 MG TAB (TYLENOL) PO SCH ×2 (01:26→06:28)
[2023-03-04] MEDS: IBUPROFEN 600 MG (MOTRIN) TAB PO SCH ×3 (01:26→09:49)
[2023-03-04 05:15] VITALS: BP 110/54
[2023-03-04 05:50] LABS: BASOPHILS % (AUTO) 0 % (0-10); EOSINOPHILS # (AUTO) 0.1 10^3/uL (0.0-0.3); EOSINOPHILS % (AUTO) 1 % (0-10); HEMATOCRIT 29 % (35-52); HEMOGLOBIN 9.3 g/dL (11.5-16.0); LYMPHOCYTES # (AUTO) 2.2 10^3/uL (1.0-4.0); LYMPHOCYTES % (AUTO) 28 % (12-44); MEAN CORPUSCULAR HEMOGLOBIN 28 pg (25-34); MEAN CORPUSCULAR HGB CONC 32 g/dL (32-36); MEAN CORPUSCULAR VOLUME 89 fL (80-99); MEAN PLATELET VOLUME 11.2 fL (9.0-12.2); MONOCYTES # (AUTO) 0.7 10^3/uL (0.0-1.0); MONOCYTES % (AUTO) 9 % (0-12); NEUTROPHILS % (AUTO) 62 % (42-75); PLATELET COUNT 221 10^3/uL (130-400); WHITE BLOOD COUNT 8.1 10^3/uL (4.3-11.0)
--- NOTE | 2023-03-04 08:12 | Discharge Summary ---
Diagnosis/Chief Complaint Date of Admission Mar 03, 2023 at 05:12 Date of Discharge March 04, 2023 Admission Diagnosis Admission Diagnosis 1. Intrauterine at term 40 weeks gestation Discharge Diagnosis 1. Intrauterine at term 40 weeks gestation Chief Complaint/HPI Chief Complaint/HPI 28-year-old 2 nowT2 L2 who initially presented to labor and delivery for induction of labor on March 03, 2023. Her care was obtained through Dr. Sanchez at [facility] and essentially unremarkable. Her EDC was March 03, 2023 Discharge Summary-OBS Procedures 1. Spontaneous vaginal delivery Discharge Physical Examination Allergies: Coded Allergies: No Known Drug Allergies (Unverified , 06/06/19) Vitals & I&Os Intake and Output 03/04/23 00:00 Intake Total 1850 ml Balance 1850 ml Vital Sign - Last 12Hours Date Time Temp Pulse Resp B/P (MAP) Pulse Ox O2 Delivery O2 Flow Rate FiO2 03/04/23 05:15 36.4 53 18 110/54 (72) 99 Room Air General Appearance: Alert, No Acute Distress Respiratory: Clear to Auscultation Cardiovascular: Regular Rate Abdominal: Soft (Uterus firm) Hospital Course Was the Problem List Reviewed?: Yes patient was admitted in the morning of March 03, 2023. She underwent amniotomy. She ultimately went on to deliver a term viable female during the early afternoon of March 03, 2023. She had no epidural and delivered natural. See labor and delivery note for full details. Following delivery she underwent routine care orders. She had no complications during the remainder of hospital stay. She was noted to have a hemoglobin in the morning of March 04 of 9.3 compared to admission of 11. she had tolerated regular diet. There was no shortness of breath or chest pain. She was felt ready for dismissal during the afternoon of March 04, 2023. Labs Laboratory Tests 03/04/23 05:32: White Blood Count 8.1, Red Blood Count 3.29L, Hemoglobin 9.3L, Hematocrit 29L, Mean Corpuscular Volume 89, Mean Corpuscular Hemoglobin 28, Mean Corpuscular Hemoglobin Concent 32, Red Cell Distribution Width 13.7, Platelet Count 221, Mean Platelet Volume 11.2, Immature Granulocyte % (Auto) 0, Neutrophils (%) (Auto) 62, Lymphocytes (%) (Auto) 28, Monocytes (%) (Auto) 9, Eosinophils (%) (Auto) 1, Basophils (%) (Auto) 0, Neutrophils # (Auto) 5.0, Lymphocytes # (Auto) 2.2, Monocytes # (Auto) 0.7, Eosinophils # (Auto) 0.1, Basophils # (Auto) 0.0, Immature Granulocyte # (Auto) 0.0 Discharge Instructions to patient/family Please see electronic discharge instructions given to patient. Discharge Medications Reviewed and agree with Discharge Medication list on patient's Discharge Instruction sheet Copy Copies To 1: JAIME SANCHEZ MD, DANIEL J MD Mar 04, 2023 08:12
--- NOTE | 2023-03-04 08:14 | Discharge Inst-Women's Service ---
Discharge Inst-Women's Serv Depart Medication/Instructions New, Converted or Re-Newed RX: Other Instructions May take ibuprofen [id number] 200 mg tablets, and take 2 or 3 if needed every 6 hours for cramps Problems Reviewed?: Yes Consults/Follow Up Additional Follow Up: Yes (Dr. Sanchez in 6 weeks) Activity Activity: Activity as Tolerated Driving Instructions: No Driving for 1 Week Nothing Inside Vagina: No Redan (For 6 weeks) Diet Discharge Diet: Regular Diet Return to The Hospital For: As below Symptoms to Report to : Bleeding Excessive, Fever Over 101 Degrees F, Vaginal Discharge Foul For Any Problems or Questions: Contact Your Physician SAVANNA SHELDON MD Mar 04, 2023 08:14
[2023-03-04 09:46] VITALS: BP 115/59
[2023-03-04] MEDS: DOCUSATE SODIUM 100 MG (COLACE) CAP PO SCH (09:48)
[2023-03-04 13:50] VITALS: BP 115/59
== END 2023-03-04 14:30 | disposition home or self-care (01) | DRG 807 ==
LOC: LDRP 05:12
PROVIDERS: ADMIT Family Medicine; ATTEND Family Medicine
PROC: 10E0XZZ Delivery of Products of Conception, External Approach (ICD-10-PCS; principal; 2023-03-03)
DX: O99.824 Streptococcus B carrier state complicating childbirth (principal); Z37.0 Single live birth; Z3A.40 40 weeks gestation of pregnancy
CPT/HCPCS: 36415; 81000; 85025; 86780; 86850; 86900; 86901; 87088